=== PATIENT | female | born 1990 | race Caucasian/White ===

== ENCOUNTER 2023-01-19 16:25 | Outpatient (CLI) | payer BC, SELFPAY ==
[2023-01-19 16:40] VITALS: BP 124/79; PULSE 97; RESP 16; TEMP 37.1; O2SAT 98
[2023-01-19 16:42] VITALS: BP 124/79; PULSE 107
[2023-01-19] MEDS: ACETAMINOPHEN 500 MG TABLET 1000 MG PO (16:57)
[2023-01-19 17:12] LABS: Hematocrit 33.3 % (33.0-51.0); Hemoglobin* 11.6 gm/dL (12.0-16.0); Mean Corpuscular HGB Conc 35 gm/dL (32-36); Mean Corpuscular Hemoglobin 32 pg (26-34); Mean Corpuscular Volume 92 fL (80-100); Platelet Count* 205 K/uL (140-440); Red Blood Count 3.62 m/uL (4.00-5.20); White Blood Count* 7.74 K/uL (4.50-11.00)
[2023-01-19 17:20] LABS: Slide Review Reflex No
[2023-01-19 17:26] LABS: Alanine Aminotransferase* 10 U/L (4-35); Aspartate Amino Transferase* 20 U/L (12-35); Blood Urea Nitrogen* 7 mg/dL (5-24); Creatinine* 0.5 mg/dL (0.5-1.5); Estimated Glomerular Filt Rate 129 ml/min
[2023-01-19 17:27] LABS: Creatinine Urine 121.9 mg/dL; Total Protein Urine 21 mg/dL
--- NOTE | 2023-01-19 18:41 | PC.OBNST ---
NST Note NST Note Start: 01/19/23 16:30 Freq: ONCE Status: Active Protocol: Document 01/19/23 18:35 CUDDYH (Rec: 01/19/23 18:35 CUDDYH [id number]) NST Note 3 Para (# of births) 1 EDC 02/03/23 Gestational Age In Weeks & Days 37 Weeks & 6 Days Patient Presented with Complaint(s) of Contractions/cramping,Headache Reactive Yes Appropriate for Gestational Age Yes RN Seda Mederos RN Date 01/19/23 Reactive Yes Appropriate for Gestational Age Yes LUKASZ Herrera RN Date 01/19/23 OB NST charge Yes Complete NST Note via Write Note Yes The provider's electronic signature indicates the NST is reactive/appropriate for gestational age. *Note to provider: If an addendum is required, open the patient's chart and click on the note under the Nurse/Allied Health tab.
== END 2023-01-19 18:35 | disposition home or self-care (01) ==
LOC: OB OUT 16:25 → OB 16:26
PROVIDERS: Visit Provider Family Medicine
DX: O47.1 False labor at or after 37 completed weeks of gestation (principal); Z3A.37 37 weeks gestation of pregnancy
CPT/HCPCS: 36415; 59025; 82565; 82570; 84156; 84450; 84460; 84520; 85027; 99213; A9270

== ENCOUNTER 2023-01-24 15:56 | Inpatient (IN) | payer BC, SELFPAY ==
[2023-01-24] VITALS (43 sets, daily range): BP systolic 111–140; BP diastolic 57–82; PULSE 83–127; RESP 18–20; TEMP 36.4–37; O2SAT 98–100; BMI 29.9
[2023-01-24] MEDS: LACTATED RINGERS 1000 ML 1,000 ML 1200 ML IV ×2 (16:15→17:22)
--- NOTE | 2023-01-24 16:31 | PM.OBHPLI ---
OB - H&P: HPI Labor/Induction History of Present Illness Time Seen by Provider: 16:31 Date Seen: 01/24/23 Chief Complaint: The patient is a 32 year old 3 para 1011 at 38w4d weeks gestation by LMP c/w 7 wk US , who presents with contractions. Chief complaint: Maternity : 3 Para: 1 Date of last menstrual period: 04/29/22 Estimated date of delivery: 02/03/23 Gestational age based on last menstrual period: 38 Narrative: Tri Benson is a 32 year old 3 para 1011 at 38w4d weeks gestation by LMP c/w 7 wk US , who presents with contractions. complicated by hx of gestational diabetes and pre-eclampsia. Normal GCT and blood pressures this . GBS neg. She was seen in triage last evening with a gush of bloody fluid. ROM+ was negative and not grossly ruptured upon evaluation. She was corie regularly and cervix was 5/70/-2. Discharged home when no cervical change after 2 hours. Contractions continued overnight and all day. Became more frequent and intense prior to presentation. No leaking fluid. No additional vaginal bleeding. Normal movement. Cervix on admission 6/90/0. History of Present Dating criteria: based on LMP care: good care Ultrasounds: normal 1st trimester US and normal mid trimester US Abnormal ultrasound findings: Normal 7 wk dating US. 20 wk survey unremarkable. EFW 48th percentile. Repeat cardiac views at 25 w WNL Labs Blood type: A (+) positive Rubella: immune RPR/VDLR: nonreactive GBS status: negative HBsAG: negative Review of Systems Status of ROS: Reports: 10 or more systems reviewed and unremarkable except as noted in History and below Meds Home Medications and Allergies Home Medications Medication Instructions Recorded Confirmed Type prenat.vits,yann,emj-zbhd-cxswq 1 tab PO DAILY 01/23/23 01/23/23 History Allergies Allergy/AdvReac Type Severity Reaction Status Date / Time No Known Drug Allergies Allergy Verified 01/23/23 18:40 OB - H&P: Exam Physical Exam: Vital signs: Pulse BP Pulse Ox 94 130/76 98 01/24/23 16:00 01/24/23 16:00 01/24/23 15:59 Narrative: General appearance: Well-appearing adult female. Alert, oriented and appropriate. Sitting up in hospital bed. HEENT: EOMI, no conjunctival injection or discharge. MMM. Neck: Supple. CV: RRR, no rubs, murmurs or extra heart sounds. Pulm: CTAB, no wheezes, rales or rhonchi. Abdomen: Gravid. Soft, non-tender. MSK: Moving all extremities. Ext: Warm and well-perfused. No LE edema. Skin: No rashes appreciated over exposed skin. Neuro: Grossly normal strength and sensation. No focal deficits. Psych: Normal affect. OB - Problem Based A/P Additional Plan (1) Term : Problem details: Uncomplicated . GBS negative. Baby girl. Status: Acute Plan: - Spontaneous active labor, expectant mangement - GBS negative - Desires epidural for pain control. Anesthesia called - Anticipate vaginal delivery
[2023-01-24] MEDS: ROPIVACAINE 0.2% 100 ml 100 ML 12 MG EPIDURAL (17:05)
--- NOTE | 2023-01-24 17:22 | P.ANBPRC_ITS ---
PFSH PFS Medical History (Updated 01/24/23 @ 16:47 by Bruna Souza MD) History of gestational diabetes ?Z86.32 - Personal history of gestational diabetes (ICD-10) History of pre-eclampsia ?Z87.59 - Personal history of other complications of , childbirth and the puerperium (ICD-10) Scoliosis ?M41.9 - Scoliosis, unspecified (ICD-10) Surgical History (Updated 01/24/23 @ 16:44 by Bruna Souza MD) H/O wisdom tooth extraction ?K08.409 - Partial loss of teeth, unspecified cause, unspecified class (ICD- 10) Social History Smoking Status: Never smoker Meds Home Medications and Allergies Home Medications Medication Instructions Recorded Confirmed Type prenat.vits,yann,rln-bqji-ikonp 1 tab PO DAILY 01/23/23 01/23/23 History Allergies Allergy/AdvReac Type Severity Reaction Status Date / Time No Known Drug Allergies Allergy Verified 01/23/23 18:40 Results Vital Signs Vital Signs: Last Vital Signs Pulse 121 H 01/24/23 17:21 BP 129/68 01/24/23 17:21 Pulse Ox 99 01/24/23 17:19 Weight: 84.096 kg Height: 167.64 cm Anesthesia Procedures Epidural Insertion Patient Location: OB Start Time: 16:45 Stop Time: 17:45 Start Date: 01/24/23 Stop Date: 01/24/23 Reason for Block: procedure for pain Patient Position: sitting Performed By: Kim Jacobo Preanesthetic Checklist: IV checked, risks and benefits discussed, monitors and equipment checked, timeout performed and anesthesia consent Prep: chlorhexidine gluconate Monitoring: blood pressure monitoring, continuous pulse oximetry and heart rate Approach: midline Vertebral Space: lumbar (1-5) Epidural Technique: RADHA saline Needle Type: Tuohy needle Injection Technique: continuous catheter Needle gauge: 17 Needle Length (cm): 10 cm Needle Insertion Depth (cm): 8 Catheter Gauge: 19 Catheter Type: multi-orifice Catheter at skin depth (cm): 13 Test Dose Result: negative and lidocaine 1.5% with epinephrine 1 to 200,000
[2023-01-24 17:28] LABS: SARS PCR* Negative SARS-CoV-2 (Negative)
[2023-01-24] MEDS: OXYTOCIN 30 unit/500 ML in NS 30 UNIT/500 ML BAG 300 UNIT IVPB (18:14)
--- NOTE | 2023-01-24 18:34 | W.PM.OBVAGDE ---
OB Procedure Vag Delivery Mother Details Mother Details: The patient is a 32 year-old, 3, Para 1, admitted on 01/24/23 at 38w4d gestation. : 3 Para: 1 Weeks Gestation: 38 Admission Date: 01/24/23 Additional Details Amniotic Membrane Status: AROM Amniotic Membrane Rupture Date: 01/24/23 Amniotic Membrane Rupture Time: 17:15 Amniotic Membrane Fluid Description: Clear Analgesia/Anesthesia Type: Epidural Waterbirth: No [place]: Yes Intrapartal Events: None Labor Onset: 14:00 Complete: 17:46 Pushin:49 Heart: heart tones during second stage were category II. Several decelerations to the 90s with pushing. Good recovery between. Delivery Details Delivery Date: 01/24/23 Delivery Time: 18:08 Route of delivery: Infant Gender: Female Infant Viability: Alive; Heart Rate Present Position at Delivery: OA Delivery Details: Delivered over intact perineum via spontaneous vaginal delivery. was placed on maternal abdomen.? Cord was clamped and cut after a 30-60 second delay. Nose and mouth were bulb suctioned.? weight pending. 1 Minute Interval Total Score: 8 5 Minute Interval Total Score: 9 Additional Details Shoulder Dystocia: No Placenta Delivery Time: 18:19 Placental Delivery Description: Spontaneous Procedure Done: Global Blood Loss: 250 Laceration: Periurethral - 1st Degree (right, not repaired) Episiotomy Description: None Blood Loss Measurement Type: QBL Bakri Used: No Sponge/Need Count Correct: Yes Cord Vessel Description: 3 Vessels Event Summary Status: Mother and were stable after delivery.
[2023-01-24] MEDS: miSOPROStoL 800 MCG/4 TABLET PR (19:15)
[2023-01-24] MEDS: LACTATED RINGERS 1000 ML 1,000 ML 999 ML IV (19:18)
[2023-01-24] MEDS: METHYLERGONOVINE MALEATE 0.2 MG/ML INJ IM (19:20)
[2023-01-24 20:05] LABS: Basophils Percent Auto 0.1 % (0.0-3.0); Hematocrit 32.4 % (33.0-51.0); Immature Granulocytes Pct Auto 1.3 %; Lymphocytes Percent Auto 7.6 % (20-44); Mean Corpuscular HGB Conc 34 gm/dL (32-36); Mean Corpuscular Hemoglobin 32 pg (26-34); Mean Corpuscular Volume 93 fL (80-100); Monocytes Percent Auto 3.9 % (0.0-11.0); Neutrophils Percent Auto 87.1 % (42.0-72.0); Platelet Count* 210 K/uL (140-440); RDW Coefficient of Variation % 13.2 % (11.5-15.5); Red Blood Count 3.48 m/uL (4.00-5.20); Slide Review Reflex No; White Blood Count* 15.19 K/uL (4.50-11.00)
[2023-01-24] MEDS: IBUPROFEN 600 MG TABLET PO (20:53)
[2023-01-25 00:08] VITALS: BP 104/64; PULSE 76; RESP 18; O2SAT 97
[2023-01-25] MEDS: ACETAMINOPHEN 500 MG TABLET 1000 MG PO (01:30)
[2023-01-25 07:11] LABS: Hemoglobin* 9.3 gm/dL (12.0-16.0)
[2023-01-25 08:00] VITALS: BP 118/76; PULSE 91; RESP 18; TEMP 36.7; O2SAT 97
--- NOTE | 2023-01-25 11:37 | PM.OBPNVD1 ---
OB - PN:Subj Subjective Date Seen: 01/25/23 Patient comments OB post-: no complaints, pain well controlled and tolerating diet infant status: and doing well feeding status: breast and bottle feeding OB - PN: Obj Exam Physical Exam: Vital signs: Temp Pulse Resp BP Pulse Ox O2 Del Method 98.1 F 91 18 118/76 97 Room Air 01/25/23 08:00 01/25/23 08:00 01/25/23 08:00 01/25/23 08:00 01/25/23 08:00 01/25/23 08:00 Constitutional: Constitutional: no acute distress Routine Abdominal Exam: Abdominal: Present soft Fundus: Present firm Comments: at umbilicus OB - PN: Obj Data Labs Labs: Laboratory Results - last 24 hr 01/24/23 01/24/23 01/25/23 16:27 19:35 06:56 WBC 15.19 H RBC 3.48 L Hgb 11.0 L 9.3 L Hct 32.4 L MCV 93 MCH 32 MCHC 34 RDW Coeff of [place] 13.2 Plt Count 210 Neut % (Auto) 87.1 H Lymph % (Auto) 7.6 L [place] % (Auto) 3.9 Eos % (Auto) 0.0 Baso % (Auto) 0.1 Neut # (Auto) 13.20 H Lymph # (Auto) 1.20 [place] # (Auto) 0.60 Eos # (Auto) 0.00 Baso # (Auto) 0.00 SARS-CoV-2 (PCR) Negative SARS-CoV-2 OB - PN: A/P Vaginal Delivery Assessment and Plan (1) Term : Problem details: Uncomplicated . GBS negative. Baby girl. Status: Acute Plan day: 1 Plan: routine care Comments: likely discharge tomorrow morning.
[2023-01-25 12:00] VITALS: BP 115/75; PULSE 87; RESP 18; TEMP 36.7; O2SAT 97
[2023-01-25 16:30] VITALS: BP 117/75; PULSE 88; RESP 18; TEMP 36.8; O2SAT 97
[2023-01-25] MEDS: IBUPROFEN 600 MG TABLET PO (20:00)
[2023-01-25 20:16] VITALS: BP 119/78; PULSE 94; RESP 16; TEMP 36.8; O2SAT 98
--- NOTE | 2023-01-26 07:51 | PM.OBDSVD1 ---
DS: Providers Provider Date Seen: 01/26/23 Date of admission: 01/24/23 15:56 Primary care physician: Not a Local Provider Admitting Clinician: Bruna Souza MD Attending Physician on discharge: Bruna Souza MD DS: Diagnosis Discharge Diagnosis (1) Term : Status: Acute Problem details: Uncomplicated . GBS negative. Baby girl. (2) Vaginal delivery: Status: Acute Exam Const: Vital Signs, click to edit/add: Vital Signs - 24 hr 01/25/23 08:00 01/25/23 12:00 01/25/23 16:30 Temperature 98.1 F 98.1 F 98.2 F Pulse Rate [Blood Pressure Cuff] 91 87 88 Respiratory Rate 18 18 18 Blood Pressure [Ri ght Arm] 118/76 115/75 117/75 Pulse Oximetry 97 97 97 Oxygen Delivery Me thod Room Air Room Air Room Air 01/25/23 20:16 Temperature 98.2 F Pulse Rate [Blood Pressure Cuff] 94 Respiratory Rate 16 Blood Pressure [Ri ght Arm] 119/78 Pulse Oximetry 98 Oxygen Delivery Me thod Room Air Common normals: no apparent distress GI: Common normals: soft to palpation Palpation: soft Other: uterus firm 2 cm below umbilicus OB - DS: Summary Hospital Course Hospital Course: The patient is a 32 year old G 2 P 2 at 38+4 weeks gestation that was admitted to the Center on 01/24/23 for active labor. She had an uncomplicated vaginal delivery. HOwever had a large pp hemorrhage about 1 hour after delivery. She delivered a viable female infant. She is breast/bottle feeding. the patient has done well with normal lochia.. Peripartum Data delivery method: Vaginal Laceration description: Periurethral - 1st Degree Episiotomy description: None complications: none [place] Gender: Female Infant Discharge Plan: Home Status at Discharge Functional status at discharge: independent ambulation Overall status at discharge: patient is progressing back to baseline Time Spent with Patient Time attestation: Total time spent providing and/or coordinating discharge services: Time spent: Less than 30 minutes Discharge Plan Discharge Disposition: Home, Self-Care Date of Admission: 01/24/23 15:56 Primary Care Provider: Provider,Not a Local Condition: Improved Anticipated Discharge Date/Time: 01/26/23 07:53 Discharge Medications: Continued prenat.vits,yann,kcg-ltch-yiujo Tablet 1 tab PO DAILY Discharge Orders: Discharge Order (Routine); Ordered 01/26/23 Ordered By: Bibiana Butler Patient Education: OB Vaginal/Breast Feeding Activity Level: No Restrictions Activity Detail: nothing per vagina x6 weeks, off work x 6 weeks Discharge Diet: Regular Follow Up Appointments: Provider,Not a Local [Primary Care Provider] - ([address] Souza) Forms: [employer] Info Instructions
[2023-01-26 08:00] VITALS: BP 111/76; PULSE 98; RESP 18; TEMP 36.4; O2SAT 98
[2023-01-26 10:06] VITALS: BP 111/76; PULSE 98; RESP 18; TEMP 36.4
== END 2023-01-26 10:05 | disposition home or self-care (01) | DRG 560 ==
LOC: OB OUT 16:02 → OB 16:02
PROVIDERS: Admitting Provider Family Medicine; Visit Provider Family Medicine
DX: O70.0 First degree perineal laceration during delivery (principal); Z3A.38 38 weeks gestation of pregnancy; Z37.0 Single live birth
CPT/HCPCS: 01967; 36415; 59025; 84112; 85018; 85025; 87635; 99213; A9270; J2210; J2370; J2795; J7120; S0020

== ENCOUNTER 2023-12-13 19:36 | Emergency (ER) | payer BC, SELFPAY ==
[2023-12-13 19:40] VITALS: BP 129/89; PULSE 99; RESP 18; TEMP 36.2; O2SAT 98; BMI 29.9
--- NOTE | 2023-12-13 20:26 | ED.GENADULT ---
HPI - General Adult General Chief complaint: Urogenital Problems, Female Stated complaint: Labial cyst became much bigger suddenly Time Seen by Provider: 12/13/23 19:46 Source: patient Mode of arrival: ambulatory Limitations: no limitations History of Present Illness HPI narrative: 33-year-old female coming in today complaining of painful labial cyst. Patient states that the cyst has been present for couple years and in the last 24 hours has gotten big and painful. She denies any systemic symptoms like fevers chills, nausea or vomiting. This cyst ever been drained before, she has never required any surgical intervention in the past. Related Data Home Medications Medication Instructions Recorded Confirmed prenat.vits,yann,ary-hixs-hwiga 1 tab PO DAILY 01/23/23 08/22/23 Previous Rx's Medication Instructions Recorded cephalexin 500 mg capsule 500 mg PO TID 5 days #15 caps 12/13/23 Allergies Allergy/AdvReac Type Severity Reaction Status Date / Time No Known Drug Allergies Allergy Verified 08/22/23 15:53 Review of Systems Status of ROS: Reports: 10 or more systems reviewed and unremarkable except as noted in History and below [facility] Medical History Vaginal delivery ?O80 - Encounter for full-term uncomplicated delivery (ICD-10) History of pre-eclampsia ?Z87.59 - Personal history of other complications of , childbirth and the puerperium (ICD-10) History of gestational diabetes ?Z86.32 - Personal history of gestational diabetes (ICD-10) Scoliosis ?M41.9 - Scoliosis, unspecified (ICD-10) Surgical History H/O wisdom tooth extraction ?K08.409 - Partial loss of teeth, unspecified cause, unspecified class (ICD-10) Social History Smoking Status: Never smoker Exam Narrative: Exam Narrative: Well-nourished well-developed patient in no acute distress. Alert and oriented. Answers questions appropriately. Mood and affect are appropriate. Thoughts are goal oriented and rational. No tangential or magical thinking noted. Patient speaks in full sentences without needing to catch her breath. HEENT: Normocephalic atraumatic. Pupils are equally round reactive to light. Extraocular muscles are intact. Conjunctivae are moist without any icterus noted. Moist mucous membranes. : Normal external female genitalia. Right inside the vaginal wall on the left side there is a firm cyst that is present and painful. There is no surrounding erythema. Const: Vital Signs, click to edit/add: Vital Signs - 24 hr 12/13/23 19:40 Temperature 97.2 F L Pulse Rate [Left P ulse Oximeter] 99 Respiratory Rate 18 Blood Pressure [Ri ght Upper Arm] 129/89 Pulse Oximetry 98 Oxygen Delivery Me thod Room Air Course Course ED Course: OBGYN, Dr. Thurman, was called and will proceed with I and D. consent form was signed. Please see her note for further details. Vital Signs Vital signs: Initial Vital Signs Temperature 97.2 F L 12/13/23 19:40 Temperature Source Temporal Artery Scan 12/13/23 19:40 Pulse Rate 99 12/13/23 19:40 Pulse Rhythm Regular 12/13/23 19:40 Respiratory Rate 18 12/13/23 19:40 Blood Pressure 129/89 12/13/23 19:40 Blood Pressure Mean 102 12/13/23 19:40 Blood Pressure Position Sitting 12/13/23 19:40 Pulse Oximetry 98 12/13/23 19:40 Oxygen Delivery Method Room Air 12/13/23 19:40 Vital Signs Temperature 97.2 F L 12/13/23 19:40 Pulse Rate 99 12/13/23 19:40 Respiratory Rate 18 12/13/23 19:40 Blood Pressure 129/89 12/13/23 19:40 Pulse Oximetry 98 12/13/23 19:40 Oxygen Delivery Method Room Air 12/13/23 19:40 Temperature 97.2 F L 12/13/23 19:40 Pulse Rate 99 12/13/23 19:40 Respiratory Rate 18 12/13/23 19:40 Blood Pressure 129/89 12/13/23 19:40 Pulse Oximetry 98 12/13/23 19:40 Oxygen Delivery Method Room Air 12/13/23 19:40 Medical Decision Making MDM Narrative Medical decision making narrative: Vaginal cyst status post I&D by OBGYN. Discharge Plan Discharge Clinical Impression: Cyst of vagina Patient Disposition: Home, Self-Care Condition: Stable Additional Instructions: Take all antibiotics as prescribed. Prescriptions: New cephalexin 500 mg capsule 500 mg PO TID 5 Days Qty: 15 0RF No Action prenat.vits,yann,nfv-bhph-alwof Tablet 1 tab PO DAILY Follow Up/Referrals: Provider,Not a Local [Primary Care Provider] - Stand Alone Forms: [employer] Info Instructions
--- NOTE | 2023-12-13 20:43 | P.GYNCN_ITS ---
STORAGE CENTER MANAGER - CN: HPI Data of Consult Time Seen by Provider: 20:05 Date Seen: 12/13/23 Patient: Kemar Patient Consult date: 12/13/23 Requesting Physician: Billie Cardenas MD Primary Care Provider: Not a Local Provider Family Provider: Josue Alcocer MD Consult Narrative Reason for consult: other (vaginal cyst) Narrative: Tri Benson is a 33 year old female who presented to the Emergency Department complaining of vaginal pain and a lump near the opening of the vagina on the left. She states that she has had a vaginal cyst, firm, stable in size for a few years. It became larger and painful today. She cannot sit upright comfortably because of the pain. She denies any drainage or bleeding from the vagina or from the cyst. cc:: CC: [facility] Medical History Vaginal delivery ?O80 - Encounter for full-term uncomplicated delivery (ICD-10) History of pre-eclampsia ?Z87.59 - Personal history of other complications of , childbirth and the puerperium (ICD-10) History of gestational diabetes ?Z86.32 - Personal history of gestational diabetes (ICD-10) Scoliosis ?M41.9 - Scoliosis, unspecified (ICD-10) Surgical History H/O wisdom tooth extraction ?K08.409 - Partial loss of teeth, unspecified cause, unspecified class (ICD- 10) Social History Smoking Status: Never smoker Meds Home Medications and Allergies Home Medications Medication Instructions Recorded Confirmed Type prenat.vits,yann,avr-xdlz-ibrua 1 tab PO DAILY 01/23/23 08/22/23 History Allergies Allergy/AdvReac Type Severity Reaction Status Date / Time No Known Drug Allergies Allergy Verified 08/22/23 15:53 STORAGE CENTER MANAGER - Exam Physical Exam: Vital signs: Temp Pulse Resp BP Pulse Ox O2 Del Method 97.2 F L 99 18 129/89 98 Room Air 12/13/23 19:40 12/13/23 19:40 12/13/23 19:40 12/13/23 19:40 12/13/23 19:40 12/13/23 19:40 Constitutional: Constitutional: no acute distress and cooperative Routine Exam: External: Present cysts (left Bartholin's duct cyst palpable, deep to the surface, tender); Absent erythema Assessment and Plan Assessment and plan (1) Bartholin's duct cyst: Status: Acute Plan Informed consent was obtained for incision and drainage of the left Bartholin's duct cyst. The site was prepped with Betadine-soaked 4x4s. 2 mL of 1% lidocaine plain was injected into the left vaginal introitus just inside the hymenal ring to create a wheal. A scalpel was used to make a stab wound into the vaginal tissue above the cyst while palpating the cyst to bring it up towards the surface. Multiple attempts were made unsuccessfully. A small Ana clamp was used to bring the cyst wall to the surface, and the cyst was ruptured with the scalpel. A moderate amount of brown/beige drainage then extruded and the cyst was palpably decompressed. The patient tolerated the procedure well. Postprocedural care was discussed, including twice daily tub soaks, pelvic rest, and signs/symptoms for which to seek medical attention. I would recommend Kelfex 500 mg BID or TID for a couple days as a precaution from infection due to the difficulty with the I&D. Procedures I/D Site: bartholin's gland Side (if applicable): left Anesthetic used: lidocaine 1% Technique: incised with #11 blade Irrigation: No Packing used?: none
== END 2023-12-13 20:59 | disposition home or self-care (01) ==
PROVIDERS: Emergency Provider Family Medicine
DX: N90.7 Vulvar cyst (principal)
CPT/HCPCS: 56420; 99283; 99284